=== PATIENT | male | born 1945 | race Caucasian/White ===

== ENCOUNTER 2017-02-17 11:49 | Emergency (ER) | payer MEDICARE ==
--- NOTE | 2017-02-17 12:03 | ED ---
General Adult HPI - General Chief complaint: Chest Pain Stated complaint: chest pain Time Seen by Provider: 02/17/17 11:56 Source: patient, family, RN notes reviewed, old records reviewed Mode of arrival: ambulatory Limitations: no limitations - History of Present Illness Initial comments: This is a 71-year-old male to the ER for evaluation of chest pain. Patient states he is having episodic chest pain for about a week. And he was having symptoms today in oriental orthodox which prompted him to come to the emergency room. Patient states he had heart exam about 2 years ago chronic stress test which was normal. He has normal blood pressure [place] stromal diabetes former smoker. Patient does surfer rasp at times. Denies fever cough or congestion. Again at this time is pain-free. Patient's pain comes it is fullness in his his sternal area. states patient has been having indigestion as of lately - Related Data Home Medications Medication Instructions Recorded Confirmed Aspirin EC [Ecotrin] 81 mg PO DAILY 11/14/13 02/17/17 Cholecalciferol [Vitamin D3] 1,000 unit PO DAILY 02/17/17 02/17/17 Multivitamins, Thera [Multivitamin 1 tab PO DAILY 02/17/17 02/17/17 (formulary)] Allergies Allergy/AdvReac Type Severity Reaction Status Date / Time dogs AdvReac Unknown Uncoded 02/17/17 11:53 Review of Systems ROS Statement: Those systems with pertinent positive or pertinent negative responses have been documented in the HPI. ROS Other: All systems not noted in ROS Statement are negative. Past Medical History Past Medical History: No Reported History History of Any Multi-Drug Resistant Organisms: None Reported Past Surgical History: No Surgical Hx Reported Past Psychological History: No Psychological Hx Reported Smoking Status: Never smoker Past Alcohol Use History: None Reported Past Drug Use History: None Reported General Exam Limitations: no limitations General appearance: alert, in no apparent distress Head exam: Present: atraumatic, normocephalic, normal inspection Eye exam: Present: normal appearance, PERRL, EOMI. Absent: scleral icterus, conjunctival injection, periorbital swelling ENT exam: Present: normal exam, mucous membranes moist Neck exam: Present: normal inspection. Absent: tenderness, meningismus, lymphadenopathy Respiratory exam: Present: normal lung sounds bilaterally. Absent: respiratory distress, wheezes, rales, rhonchi, stridor Cardiovascular Exam: Present: regular rate, normal rhythm, normal heart sounds. Absent: systolic murmur, diastolic murmur, rubs, gallop, clicks GI/Abdominal exam: Present: soft, normal bowel sounds. Absent: distended, tenderness, guarding, rebound, rigid Extremities exam: Present: normal inspection, full ROM, normal capillary refill. Absent: tenderness, pedal edema, joint swelling, calf tenderness Back exam: Present: normal inspection Neurological exam: Present: alert, oriented X3, CN II-XII intact Psychiatric exam: Present: normal affect, normal mood Skin exam: Present: warm, dry, intact, normal color. Absent: rash Course Vital Signs 02/17/17 02/17/17 02/17/17 11:50 13:06 13:29 Temperature 96.8 F L Pulse Rate 91 67 68 Respiratory 18 16 16 Rate Blood Pressure 138/90 147/86 138/92 O2 Sat by Pulse 98 97 97 Oximetry - Reevaluation(s) Reevaluation #1: 02/17/17 12:02 Patient is without chest pain at this time Reevaluation #2: 02/17/17 14:14 Patient remains without chest pain [place] home EKG Findings - EKG Comments: EKG Findings:: EKG shows normal sinus rhythm rate of 70, WI 188, QRS 80, QTC 419 Medical Decision Making - Medical Decision Making 71 male atypical chest pain no cardiac risk factors, patient will be discharged home - Lab Data Result diagrams: 02/17/17 12:20 02/17/17 12:20 Lab Results 02/17/17 02/17/17 02/17/17 Range/Units 12:20 12:20 12:20 WBC 5.4 (3.8-10.6) k/uL RBC 5.01 (4.30-5.90) m/uL Hgb 15.6 (13.0-17.5) gm/dL Hct 46.3 (39.0-53.0) % MCV 92.4 (80.0-100.0) fL MCH 31.1 (25.0-35.0) pg MCHC 33.7 (31.0-37.0) g/dL RDW 14.6 (11.5-15.5) % Plt Count 243 (150-450) k/uL Neutrophils % 55 % Lymphocytes % 30 % Monocytes % 9 % Eosinophils % 4 % Basophils % 1 % Neutrophils # 3.0 (1.3-7.7) k/uL Lymphocytes # 1.6 (1.0-4.8) k/uL Monocytes # 0.5 (0-1.0) k/uL Eosinophils # 0.2 (0-0.7) k/uL Basophils # 0.1 (0-0.2) k/uL PT (9.0-12.0) sec INR (<1.2) APTT (22.0-30.0) sec Sodium 138 (137-145) mmol/L Potassium 4.6 (3.5-5.1) mmol/L Chloride 106 (98-107) mmol/L Carbon Dioxide 23 (22-30) mmol/L Anion Gap 9 mmol/L BUN 16 (9-20) mg/dL Creatinine 1.07 (0.66-1.25) mg/dL Est GFR (MDRD) Af Amer >60 (>60 ml/min/1.73 sqM) Est GFR (MDRD) Non-Af >60 (>60 ml/min/1.73 sqM) Glucose 105 H (74-99) mg/dL Calcium 9.7 (8.4-10.2) mg/dL Magnesium 1.9 (1.6-2.3) mg/dL Total Bilirubin 0.8 (0.2-1.3) mg/dL AST 28 (17-59) U/L ALT 49 (21-72) U/L Alkaline Phosphatase 95 (38-126) U/L Total Creatine Kinase 54 L (55-170) U/L CK-MB (CK-2) 1.0 (0.0-2.4) ng/mL CK-MB (CK-2) Rel Index 1.9 Troponin I <0.012 (0.000-0.034) ng/mL Total Protein 7.3 (6.3-8.2) g/dL Albumin 4.3 (3.5-5.0) g/dL Lipase 122 (23-300) U/L 02/17/ Range/Units 12:20 WBC (3.8-10.6) k/uL RBC (4.30-5.90) m/uL Hgb (13.0-17.5) gm/dL Hct (39.0-53.0) % MCV (80.0-100.0) fL MCH (25.0-35.0) pg MCHC (31.0-37.0) g/dL RDW (11.5-15.5) % Plt Count (150-450) k/uL Neutrophils % % Lymphocytes % % Monocytes % % Eosinophils % % Basophils % % Neutrophils # (1.3-7.7) k/uL Lymphocytes # (1.0-4.8) k/uL Monocytes # (0-1.0) k/uL Eosinophils # (0-0.7) k/uL Basophils # (0-0.2) k/uL PT 10.5 (9.0-12.0) sec INR 1.0 (<1.2) APTT 23.7 (22.0-30.0) sec Sodium (137-145) mmol/L Potassium (3.5-5.1) mmol/L Chloride (98-107) mmol/L Carbon Dioxide (22-30) mmol/L Anion Gap mmol/L BUN (9-20) mg/dL Creatinine (0.66-1.25) mg/dL Est GFR (MDRD) Af Amer (>60 ml/min/1.73 sqM) Est GFR (MDRD) Non-Af (>60 ml/min/1.73 sqM) Glucose (74-99) mg/dL Calcium (8.4-10.2) mg/dL Magnesium (1.6-2.3) mg/dL Total Bilirubin (0.2-1.3) mg/dL AST (17-59) U/L ALT (21-72) U/L Alkaline Phosphatase (38-126) U/L Total Creatine Kinase (55-170) U/L CK-MB (CK-2) (0.0-2.4) ng/mL CK-MB (CK-2) Rel Index Troponin I (0.000-0.034) ng/mL Total Protein (6.3-8.2) g/dL Albumin (3.5-5.0) g/dL Lipase (23-300) U/L - Radiology Data Radiology results: report reviewed (Chest x-rays negative), image reviewed Disposition Clinical Impression: Atypical chest pain, Chest pain Disposition: HOME SELF-CARE Condition: Good Instructions: Chest Pain (ED) Referrals: Scotty Culver DO [Primary Care Provider] - 1-2 days
[2017-02-17 12:29] LABS: Basophils # (A) 0.1 k/uL (0-0.2); Basophils % (A) 1 %; CH 31.7; CHCM 34.5; Eosinophils # (A) 0.2 k/uL (0-0.7); Eosinophils % (A) 4 %; HCT 46.3 % (39.0-53.0); HDW 2.51; HGB 15.6 gm/dL (13.0-17.5); Luc # (Auto) 0.14; Luc % (Auto) 3; Lymphocytes # (A) 1.6 k/uL (1.0-4.8); Lymphocytes % (A) 30 %; MCH 31.1 pg (25.0-35.0); MCHC 33.7 g/dL (31.0-37.0); MCV 92.4 fL (80.0-100.0); Mean Platelet Volume 8.3; Monocytes # (A) 0.5 k/uL (0-1.0); Monocytes % (A) 9 %; Neutrophils % (A) 55 %; RBC 5.01 m/uL (4.30-5.90); RDW 14.6 % (11.5-15.5); WBC 5.4 k/uL (3.8-10.6); WBC (Perox) 5.32
[2017-02-17 12:45] LABS: Partial Thromboplastin Time 23.7 sec (22.0-30.0); Prothrombin Time 10.5 sec (9.0-12.0)
[2017-02-17 12:46] LABS: ALT 49 U/L (21-72); AST 28 U/L (17-59); Alkaline Phosphatase 95 U/L (38-126); Anion Gap 9 mmol/L; Blood Urea Nitrogen 16 mg/dL (9-20); Calcium 9.7 mg/dL (8.4-10.2); Carbon Dioxide 23 mmol/L (22-30); Chloride 106 mmol/L (98-107); Glucose 105 mg/dL (74-99); Magnesium 1.9 mg/dL (1.6-2.3); Non-African American GFR(MDRD) >60 (>60 ml/min/1.73 sqM); Potassium 4.6 mmol/L (3.5-5.1); Sodium 138 mmol/L (137-145); Total Bilirubin 0.8 mg/dL (0.2-1.3); Total Protein 7.3 g/dL (6.3-8.2)
[2017-02-17 12:49] LABS: Creatine Kinase 54 U/L (55-170)
--- NOTE | 2017-02-17 12:49 | XR ---
EXAMINATION TYPE: XR chest 2V DATE OF EXAM: 02/17/2017 COMPARISON: 11/14/2013 HISTORY: Shortness of breath TECHNIQUE: Frontal and lateral views of the chest are obtained. FINDINGS: Scattered senescent parenchymal changes noted. Hyperinflation compatible with COPD. No evidence for infiltrate. No evidence for atelectasis. Heart size is stable. Mediastinal structures are stable and grossly unremarkable. No evidence for hilar prominence. Degenerative changes dorsal spine. IMPRESSION: 1. No evidence for acute pulmonary disease.
[2017-02-17 13:02] LABS: Troponin I <0.012 ng/mL (0.000-0.034)
[2017-02-17 14:42] VITALS: BP 128/73; PULSE 66; RESP 14; TEMP 97
== END 2017-02-17 14:35 | disposition home or self-care (01) ==
LOC: EC 11:49
DX: R07.89 Other chest pain (principal); Z79.82 Long term (current) use of aspirin; Z79.899 Other long term (current) drug therapy; Z91.09 Other allergy status, other than to drugs and biological substances
CPT/HCPCS: 36415; 71020; 80053; 82550; 82553; 83690; 83735; 84484; 85025; 85610; 85730; 93005; 99285

== ENCOUNTER 2018-04-29 08:57 | Day surgery (SDC) | payer MEDICARE ==
[2018-04-25 10:00] VITALS: BMI 29.2
[~2018-04-29 08:57] MED LIST: LACTATED RINGERS 1,000 ML IV SCH; LIDOCAINE 1% 20 ML VIAL (10MG/ML) FOR IV START INTRADERMA PRN
[2018-04-29 10:04] VITALS: TEMP 97
[2018-04-29] MEDS ORDERED: LIDOCAINE 1% INJ 10MG/ML (20 ML MDV) ONE (10:46)
[2018-04-29] MEDS ORDERED: PROPOFOL 10 MG/ML 20 ML VIAL IV ONE (10:46)
[2018-04-29 11:18] VITALS: RESP 18
--- NOTE | 2018-04-29 11:23 | P.PCN ---
Date of Procedure: 04/29/18 Procedure(s) Performed: Procedure: Colonoscopy and polypectomy. Preoperative diagnosis: Screening for neoplasia, patient has history of polyps. Postoperative diagnosis: 1. Diverticulosis with no evidence of acute diverticulitis or strictures. 2. Two small polyps snared but no large polyps or cancer. Preparation: HalfLytely prep. Sedation: Was provided by anesthesia. Brief clinical history: The patient is a 72-year-old male who is scheduled for this evaluation for screening for neoplasia because of history of polyps. His last exam was in 2012. He has no abdominal complaints, bleeding or anemia. Procedure: With the patient on his left lateral decubitus position and after informed consent and adequate sedation, the perianal area was inspected and it did not show any fissures or fistulas. There were no masses felt on digital rectal examination. The Olympus CFH 190L was inserted in the rectum in the usual fashion and advanced to the cecum. Multiple diverticular orifices were seen scattered on the left side and around the hepatic flexure and on the right side with no evidence of acute diverticulitis or strictures. There was a small polyp around the hepatic flexure which was snared and retrieved by suction and a diminutive polyp in the rectum close to the anorectal junction which was also snared and retrieved by suction. No large polyps or cancer. I retroflexed the endoscope in the rectum before the endoscope was withdrawn. The patient tolerated the procedure well. Plan: The patient was reassured. Discussed dietary measures. I recommended repeat exam in 5 years. He will follow up with you as planned.
[2018-04-29 11:36] VITALS: BP 137/78; PULSE 71
== END 2018-04-29 11:47 | disposition home or self-care (01) ==
LOC: ORWHC2ENDO 08:57
DX: Z12.11 Encounter for screening for malignant neoplasm of colon (principal); D12.3 Benign neoplasm of transverse colon; D12.8 Benign neoplasm of rectum; K57.30 Diverticulosis of large intestine without perforation or abscess without bleeding; K21.9 Gastro-esophageal reflux disease without esophagitis; Z79.899 Other long term (current) drug therapy; Z85.828 Personal history of other malignant neoplasm of skin
CPT/HCPCS: 88305; 45385; J2001; J2704

== ENCOUNTER → 2018-07-03 | Outpatient (CLI) | payer MEDICARE | LOC: LABWHC1 09:08 | PROVIDERS: ATTEND Urology | DX: C61 Malignant neoplasm of prostate (principal) | CPT/HCPCS: 36415; 84153 ==

== ENCOUNTER → 2019-11-17 | Outpatient (CLI) | payer MEDICARE ==
--- NOTE | 2019-11-17 13:06 | ECHOS ---
STRESS ECHOCARDIOGRAM LUMASON: Vial INDICATIONS: Chest pain. MEDICATIONS: BASELINE HEART RATE: 67 BASELINE BLOOD PRESSURE: 125/66 MAXIMUM HEART RATE: 143 MAXIMUM BLOOD PRESSURE: 187/83 85% MPHR: 127 100% MPHR: 149 METS: 7.1 MAXIMUM STAGE REACHED: 2 TOTAL EXERCISE TIME: 6:00 CLINICAL INFORMATION: Baseline rhythm is a sinus mechanism, rate 67, normal axis and intervals. Normal echocardiogram. Baseline blood pressure 125/66 mmHg. Patient exercised on [place] protocol for 6 minutes reaching peak rate of 143 beats per minute which is equal to 96% maximum predicted heart rate. Peak blood pressure 163/83 mmHg. Test was terminated due to fatigue. There was no chest pain. Electrocardiograph monitoring revealed rare PVCs, there was a [address]-segment depression that resolved slowly in recovery. FINDINGS: Baseline echocardiogram revealed normal wall motion. At peak exercise, there was normal wall motion augmentation with no hypokinesis or dyskinesis. CONCLUSION: 1. Average exercise tolerance with borderline positive electrocardiograph stress testing. 2. Normal stress echocardiogram with no evidence of stress-induced ischemia. MMODL / IJN: [id number] /
== END | disposition home or self-care (01) ==
LOC: RADNMMAIN 09:45
PROVIDERS: ATTEND Family Medicine
DX: R07.89 Other chest pain (principal)
CPT/HCPCS: C8930; Q9950; 93351

== ENCOUNTER 2021-01-04 18:39 | Emergency (ER) | payer MEDICARE ==
[2021-01-04 19:56] VITALS: BP 139/90; PULSE 88; RESP 20; TEMP 98.3
--- NOTE | 2021-01-04 22:05 | XR ---
EXAMINATION TYPE: XR chest 1V DATE OF EXAM: 01/04/2021 COMPARISON: 02/17/2017 HISTORY: Cough. Pneumonia. TECHNIQUE: Single view FINDINGS: Heart and mediastinum are normal. There is some mild interstitial increased density at the lung bases. There is poor inspiration. There are no hilar masses. There is no pleural effusion. IMPRESSION: Inspiration decreased compared to old exam. Mild increased interstitial density in the lo wer lobes. No heart failure.
[2021-01-04] MEDS ORDERED: SODIUM CHLORIDE 0.9% 50 ML IVPB ONE (22:15)
[2021-01-04] MEDS ORDERED: CASIRIVIMAB (REGN10933) (EUA) 600 MG, IMDEVIMAB (REGN10987) (EUA) 600 MG in SODIUM CHLO... IVPB ONE (22:30)
--- NOTE | 2021-01-04 23:26 | ED ---
General Adult HPI - General Chief complaint: Upper Respiratory Infection Stated complaint: Cough,weakness, COVID exposure, Time Seen by Provider: 01/04/21 21:26 Source: patient Mode of arrival: ambulatory Limitations: no limitations - History of Present Illness Initial comments: 75-year-old male patient presents to the emergency department today for eval uation of cough and body aches. States that symptoms started this morning. States his was diagnosed with COVID-19 recently. States he was tested yesterday and tested negative. He denies any significant past medical history. States he would like to receive the antibody infusion if he is positive. Denies any significant shortness of breath, chest pain, nausea, vomiting, or diarrhea. States he is eating and drinking without difficulty. - Related Data Home Medications Medication Instructions Recorded Confirmed Ranitidine HCl [Zantac] 150 mg PO HS 04/25/18 04/29/18 Allergies Allergy/AdvReac Type Severity Reaction Status Date / Time dogs AdvReac BREATHING Uncoded 01/04/21 19:53 DIFFICULTY Review of Systems ROS Statement: Those systems with pertinent positive or pertinent negative responses have been documented in the HPI. ROS Other: All systems not noted in ROS Statement are negative. Past Medical History Past Medical History: Cancer, GERD/Reflux Additional Past Medical History / Comment(s): ASTHMA A CHILD, BACK PAIN, SKIN CANCER., ELEVATED PSA . History of Any Multi-Drug Resistant Organisms: None Reported Past Surgical History: Joint Replacement Additional Past Surgical History / Comment(s): TOTAL LEFT KNEE Past Anesthesia/Blood Transfusion Reactions: No Reported Reaction Past Psychological History: No Psychological Hx Reported Smoking Status: Former smoker Past Alcohol Use History: None Reported Past Drug Use History: None Reported - Past Family History Mother Family Medical History: Cancer Additional Family Medical History / Comment(s): BREAST CANCER Father Family Medical History: Cancer Additional Family Medical History / Comment(s): UNKNOWN TYPE OF CANCER General Exam Limitations: no limitations General appearance: alert, in no apparent distress, other (This is a well- developed, well-nourished adult male patient in no acute distress. Vital signs upon presentation are temperature 98.3F, pulse 88, respirations 20, blood pressure 139/90, pulse ox 97% on room air.) Eye exam: Present: normal appearance, PERRL, EOMI. Absent: scleral icterus, conjunctival injection, periorbital swelling ENT exam: Present: normal exam, normal oropharynx, mucous membranes moist Respiratory exam: Present: normal lung sounds bilaterally. Absent: respiratory distress, wheezes, rales, rhonchi, stridor Cardiovascular Exam: Present: regular rate, normal rhythm, normal heart sounds. Absent: systolic murmur, diastolic murmur, rubs, gallop, clicks GI/Abdominal exam: Present: soft, normal bowel sounds. Absent: distended, tenderness, guarding, rebound, rigid Neurological exam: Present: alert, oriented X3, CN II-XII intact Psychiatric exam: Present: normal affect, normal mood Skin exam: Present: warm, dry, intact, normal color. Absent: rash Course Vital Signs 01/04/21 19:53 Temperature 98.3 F Pulse Rate 88 Respiratory 20 Rate Blood Pressure 139/90 O2 Sat by Pulse 97 Oximetry Medical Decision Making - Medical Decision Making 75-year-old male patient presenting to the emergency department today for evaluation of cough, body aches, and weakness. He did test positive for COVID- 19. Symptoms started today. V/S are unremarkable. He does meet criteria for monoclonal antibodies and has agreed to the receive the infusion. He had no complications. He does feel comfortable being discharged home. He is instructed to follow-up with his primary care physician for recheck in 1-2 days. Return parameters were discussed in detail. He verbalizes understanding and agrees with this plan. My attending is Dr. Cummins. - Lab Data Lab Results 01/04/21 Range/Units 19:57 Coronavirus (PCR) Detected A (Not Detectd) - Radiology Data Radiology results: report reviewed, image reviewed One view x-ray of the chest is obtained. Report was reviewed in its entirety. Impression by Dr. Anglin shows inspiration decreased compared to old exam. Mild increased interstitial density in the lower lobes. No heart failure. Disposition Clinical Impression: COVID-19 Disposition: HOME SELF-CARE Condition: Good Instructions (If sedation given, give patient instructions): Coronavirus Disease 2019 (COVID-19) Additional Instructions: Take [id number] cough and cold medication for symptom relief. Alternate Tylenol Motrin if he develops fever. Follow-up through primary care physician for recheck in 1-2 days. Return for any new, worsening, or concerning symptoms. Is patient prescribed a controlled substance at d/c from ED?: No Referrals: Scotty Culver DO [Primary Care Provider] - 1-2 days Time of Disposition: 23:50
== END 2021-01-05 00:08 | disposition home or self-care (01) ==
LOC: EC 18:39
DX: U07.1 COVID-19 (principal); K21.9 Gastro-esophageal reflux disease without esophagitis; J45.909 Unspecified asthma, uncomplicated; Z87.891 Personal history of nicotine dependence; Z91.09 Other allergy status, other than to drugs and biological substances; Z79.899 Other long term (current) drug therapy
CPT/HCPCS: 99285 ×2; 87635; 71045; 96360; M0243; Q0243

== ENCOUNTER → 2024-06-23 | Outpatient (CLI) | payer MEDICARE ==
[2024-06-23 18:28] LABS: Basophils # (A) 0.07 X 10*3/uL (0.00-0.10); Basophils % (A) 1.3 %; Eosinophils # (A) 0.24 X 10*3/uL (0.04-0.35); Eosinophils % (A) 4.6 %; HCT 45.3 % (39.6-50.0); HGB 15.5 g/dL (13.0-17.0); Lymphocytes % (A) 34.6 %; MCH 31.1 pg (27.0-32.0); MCHC 34.2 g/dL (32.0-37.0); Mean Platelet Volume 11.2 FL (9.5-12.2); Monocytes # (A) 0.55 X 10*3/uL (0.20-1.00); Monocytes % (A) 10.6 %; NRBC Per 100 WBC 0 X 10*3/uL (0.00-0.01); Neutrophils # (A) 2.53 X 10*3/uL (1.80-7.70); Neutrophils % (A) 48.7 %; Platelet Count 268 X 10*3/uL (140-440); RBC 4.98 X 10*6/uL (4.40-5.60); RDW 13.4 % (11.5-14.5)
[2024-06-23 18:51] LABS: ALT 27 U/L (10-49); AST 25 U/L (14-35); Albumin 4.4 g/dL (3.8-4.9); Albumin/Globulin Ratio 1.83 Ratio (1.60-3.17); Alkaline Phosphatase 95 U/L (41-126); BUN/Creat Ratio 11.46 Ratio (12.00-20.00); Blood Urea Nitrogen 14.9 mg/dL (9.0-27.0); Calcium 9.7 mg/dL (8.7-10.3); Carbon Dioxide 26.1 mmol/L (21.6-31.8); Chloride 103 mmol/L (96-109); Globulin 2.4 g/dL (1.6-3.3); Glucose 103 mg/dL (70-110); Potassium 4.4 mmol/L (3.5-5.5); Sodium 140 mmol/L (135-145); Total Protein 6.8 g/dL (6.2-8.2)
--- NOTE | 2024-06-23 18:51 | MR ---
EXAMINATION TYPE: MR abdomen wo/w con DATE OF EXAM: 06/23/2024 4:57 PM COMPARISON: None CLINICAL INDICATION: Male, 78 years old with history of K21.9 GASTRO-ESOPHAGEAL REFLUX DISEASE WITHOU T ESO; PHH, Abdominal mass, abnormal EDG test TECHNIQUE: Multiplanar multi-sequence imaging was performed without contrast. Post contrast imaging was performed. Post IV contrast subtraction images were also submitted for review. IV Contrast: 10 mL Gadobutrol FINDINGS: LOWER CHEST: Heart is mildly enlarged for size. ABDOMEN Liver: No evidence for cirrhosis. Signal dropout on chemical shift out of phase imaging. Gallbladder and Bile ducts: No evidence for ductal dilation, or biliary stricture or evidence of chol edocholithiasis. The gallbladder is within normal limits. Pancreas: No ductal dilation. No evidence for solid mass. Spleen: Normal for size. Adrenal glands: Unremarkable. Kidneys: No evidence for obstructive uropathy. No suspicious renal masses. Stomach and Bowel: No evidence for bowel wall thickening or evidence for obstruction. The stomach, di stal esophagus and duodenum are grossly unremarkable. No large mass identified. Retroperitoneum/Peritoneum: No evidence of pneumoperitoneum or free fluid. Vasculature: No aortic aneurysm. Musculoskeletal: The osseous structures appear intact. Lymph Nodes: No gross evidence for lymphadenopathy. Abdominal wall: Unremarkable. IMPRESSION: 1. No evidence for mass or lymphadenopathy. The stomach, distal esophagus and duodenum appear within normal limits without evidence for mass. 2. Mild cardiomegaly. 3. Hepatic steatosis. [facility], , 06/23/2024 6:48 PM
== END | disposition home or self-care (01) ==
LOC: RADMRIMAIN 14:01
PROVIDERS: ATTEND Student in an Organized Health Care Education/Training Program
DX: K76.0 Fatty (change of) liver, not elsewhere classified (principal); K21.9 Gastro-esophageal reflux disease without esophagitis; R19.00 Intra-abdominal and pelvic swelling, mass and lump, unspecified site; E66.9 Obesity, unspecified; I51.7 Cardiomegaly
CPT/HCPCS: 80053; 85025; 86301; 74183; A9585